=== PATIENT | female | born 1965 | race Caucasian/White ===

== ENCOUNTER → 2016-11-28 | Outpatient (CLI) | payer BC ==
[~2016-11-28] MED LIST: ALBU1AER9 INH; CETI10TA84 PO; CHOL200010 PO; CLR10 PO; KRIL1000 PO; LUTE1CAP9 PO; MISCCAP80 PO; MULT-506 PO; [UNRECOGNIZED DRUG - OTHER] PO
== END | disposition home or self-care (01) ==
LOC: C.LABSPEC 17:33
PROVIDERS: ATTEND Physician Assistant
DX: R10.2 Pelvic and perineal pain (principal)

== ENCOUNTER → 2016-12-13 | Outpatient (CLI) | payer BC | END | disposition home or self-care (01) | LOC: C.PAPS 16:34 | PROVIDERS: ATTEND Physician Assistant | DX: Z01.419 Encounter for gynecological examination (general) (routine) without abnormal findings (principal) ==

== ENCOUNTER → 2017-05-25 | Outpatient (CLI) | payer OTHER ==
--- NOTE | 2017-05-25 17:21 | DIAGNOSTIC IMAGING REPORT ---
R HAND MIN 3 VIEWS ROUTINE CLINICAL HISTORY: Right wrist pain following fall. COMPARISON: None. FINDINGS: Alignment of the right hand is anatomic. No fracture is identified. Carpal bones are intact. 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 IMPRESSION: No acute fracture or dislocation within the right hand. Electronically signed by: Nick Becerril M.D. 05/25/2017 5:20 PM Dictated Date/Time: 05/25/2017 5:17 PM
--- NOTE | 2017-05-25 17:23 | DIAGNOSTIC IMAGING REPORT ---
RIGHT WRIST 3 VIEWS HISTORY: Right wrist pain. COMPARISON: None. FINDINGS: There is no fracture or dislocation. Mild soft tissue swelling adjacent to the distal ulna. No radiopaque foreign bodies. IMPRESSION: No fractures. Electronically signed by: Evens Sánchez M.D. 05/25/2017 5:21 PM Dictated Date/Time: 05/25/2017 5:19 PM
== END | disposition home or self-care (01) ==
LOC: C.RAD1850 16:59
PROVIDERS: ATTEND Family Medicine
DX: M25.531 Pain in right wrist (principal)

== ENCOUNTER → 2017-11-10 | Outpatient (CLI) | payer OTHER ==
--- NOTE | 2017-11-10 15:27 | MAMMOGRAPHY REPORT ---
BILATERAL DIGITAL SCREENING MAMMOGRAM TOMOSYNTHESIS WITH CAD: 11/10/2017 CLINICAL HISTORY: Routine screening. Patient has no complaints. TECHNIQUE: The study was acquired using full field digital technology and interpreted from soft copy. Breast tomosynthesis in addition to standard 2D mammography was performed. Current study was also ev aluated with a Computer Aided Detection (CAD) system. COMPARISON: Comparison is made to exams dated: 02/10/2016 mammogram, 03/23/2012 mammogram, 03/07/2011 mammogram, 04/04/2013 mammogram, 03/05/2010 mammogram, and 04/07/2014 mammogram - [facility]ter. BREAST COMPOSITION: There are scattered areas of fibroglandular density in both breasts. FINDINGS: There is a focal asymmetry within the right 12:00 breast, best seen on the CC tomosynthesis images, f or which spot compression tomosynthesis views and possible breast ultrasound are recommended for furt her evaluation. The remainder of both breasts are stable compared to prior exams, without suspicious masses, calcific ations, or areas of architectural distortion noted. IMPRESSION: ACR BI-RADS CATEGORY 0: INCOMPLETE EVALUATION: NEED ADDITIONAL IMAGING EVALUATION Right breast focal asymmetry, for which additional imaging evaluation is recommended. The patient wi ll be called to schedule an appointment. Some breast cancers are not detected with mammography. A negative mammographic report should not mable y biopsy if a clinically suggestive mass is present. Marija Garcia M.D. ah/:11/10/2017 07:42:58 Business Development Specialist: RT Jennifer(Karen)(M), [facility] letter sent: Addl Imaging 0 BI-RADS Code: ACR BI-RADS Category 0: Incomplete Evaluation: Need Additional Imaging Evaluation
== END | disposition home or self-care (01) ==
LOC: C.MAMM 07:21
PROVIDERS: ATTEND Obstetrics & Gynecology
DX: Z12.31 Encounter for screening mammogram for malignant neoplasm of breast (principal); N64.89 Other specified disorders of breast

== ENCOUNTER → 2017-11-21 | Outpatient (CLI) | payer OTHER ==
--- NOTE | 2017-11-21 15:13 | MAMMOGRAPHY REPORT ---
UNILATERAL RIGHT DIGITAL DIAGNOSTIC MAMMOGRAM TOMOSYNTHESIS AND RIGHT ULTRASOUND: 11/21/2017 CLINICAL HISTORY: 52-year-old woman called back from screening mammography for a focal asymmetry in t he 12:00 right breast. Family history of breast cancer = aunt in her 40s. TECHNIQUE: Spot compression right CC and MLO tomosynthesis images were obtained. COMPARISON: Comparison is made to exams dated: 11/10/2017 mammogram, 02/10/2016 mammogram, 04/07/2014 ma mmogram, 04/04/2013 mammogram, 03/23/2012 mammogram, and 03/07/2011 mammogram - [facility]. BREAST COMPOSITION: The tissue of right breast is heterogeneously dense, which may obscure small mass es. FINDINGS: The spot compression right CC tomosynthesis view demonstrates partial effacement of the asy mmetry in the middle one third of the breast along the posterior nipple line on the 11/10/2017 screeni ng exam. A persistent 9.2 mm nodular asymmetry is identified on CC spot compression tomosynthesis sl ice 37/78, without evidence of spiculation or calcification. No other definite masses, areas of dist ortion or calcifications are seen in the right breast. A corresponding abnormality is not definitive ly seen on the spot compression MLO tomosynthesis images. Targeted ultrasound was performed in the right breast 12:00, retroareolar, 6:00 and slightly medial a nd slightly lateral to the nipple within the right breast. A few scattered cysts are identified in t he 12:00 axis, notably in the 12:00 right breast, 3 cm from the nipple, measuring 3.4 x 2.1 x 4.2 mm. Another possible lobulated hypoechoic to anechoic cystic-appearing mass in the 12:00 right breast, 1 cm from the nipple, 2.5 cm deep to the dermis measures approximately 7.0 x 6.2 x 3.6 mm. This may p ossibly correlate with the persistent mammographic nodular asymmetry, although size measurements diff er slightly from 7 versus 9 mm. Definitive characterization with ultrasound guided cyst aspiration v ersus core needle biopsy is recommended, with assessment of postprocedure imaging to assess for mammo gramultrasound correlation. No other suspicious solid or cystic mass is seen throughout the remainder of the visualized right nela ast on targeted ultrasound. IMPRESSION: ACR BI-RADS CATEGORY 4: SUSPICIOUS, ULTRASOUND ACR BI-RADS CATEGORY 4: SUSPICIOUS 1. Right breast ultrasound-guided cyst aspiration versus core biopsy is recommended for a probable 7 mm cyst in the 12:00 right breast, 1 cm from the nipple which may correlate with a persistent mammog raphic asymmetry seen in the CC projection along the posterior nipple line. 2. Correlation with postprocedure tomosynthesis mammograms is recommended. 3. These results and recommendations were discussed with the patient and her at the time of the exam. She tentatively scheduled the right breast procedure prior to leaving the department. Some breast cancers are not detected with mammography. A negative mammographic report should not mable y biopsy if a clinically suggestive mass is present. Krista Elizabeth M.D. ay/:11/21/2017 14:34:18 Sample Checker: RT Golden(Karen)(M), [facility] letter sent: Abnormal 4/5 OVERALL STUDY BIRADS: 4 Suspicious abnormality
== END | disposition home or self-care (01) ==
LOC: C.MAMM 09:38
PROVIDERS: ATTEND Obstetrics & Gynecology
DX: R92.8 Other abnormal and inconclusive findings on diagnostic imaging of breast (principal); Z85.3 Personal history of malignant neoplasm of breast; N63.10 Unspecified lump in the right breast, unspecified quadrant

== ENCOUNTER → 2017-11-23 | Outpatient (CLI) | payer OTHER ==
--- NOTE | 2017-11-23 15:08 | MAMMOGRAPHY REPORT ---
ASPIRATION RIGHT BREAST: 11/23/2017 CLINICAL HISTORY: Right 12:00 breast mass seen on recent ultrasound, which was felt to possibly corre late with the mammographic asymmetry. Therefore, aspiration versus biopsy was recommended. PATIENT CONSENT: The procedure and risks of ultrasound-guided cyst aspiration versus biopsy were disc ussed in full with the patient. Both oral and written consents were obtained. PROCEDURE DESCRIPTION: With ultrasound guidance, aseptic technique, and 1% lidocaine as a local anest hetic (1% lidocaine to anesthetize the skin and 1% lidocaine with epinephrine to anesthetize the deep er tissues), an attempt was made to aspirate the mass using an 18-gauge needle attached to a syringe. However, the mass did not aspirate. Therefore, the decision was made to proceed to core needle bio psy. A small skin kamille was made. After additional lidocaine was injected into the breast parenchyma , the previously seen mass was not confidently visualized to be targeted for biopsy, therefore, the d ecision was made to not proceed with a biopsy. Direct pressure was applied to the site and hemostasis was achieved. The patient tolerated the proce dure without complication. The small incision was covered with Steri-Strips and wound care instructi ons were reviewed with the patient. Given that the mass could not be biopsied and given that it was unclear if this completely accounted for the mammographic asymmetry, recommend contrast enhanced bilateral breast MRI to evaluate both the sonographic mass as well as the mammographic asymmetry. COMPARISON: Comparison is made to exams dated: 11/21/2017 ultrasound, 11/10/2017 mammogram, 02/10/2016 mammogram, 04/07/2014 mammogram, and 04/04/2013 mammogram - [facility]. IMPRESSION: ASPIRATION The hypoechoic mass in the right 12:00 breast did not aspirate, and the mass could not confidently be visualized to target for biopsy. As there is a question if the mass completely accounts for the sedrick mographic asymmetry and given the family history of breast cancer, would recommend contrast enhanced bilateral breast MRI to evaluate both the sonographic finding and the mammographic asymmetry. The patient was verbally notified of the results. The breast MRI was scheduled before the patient le ft the department. Marija Garcia M.D. ah/:11/23/2017 12:01:31 Ophthalmic Tech: Trinh Cintron, [facility]
== END | disposition home or self-care (01) ==
LOC: C.MAMM 08:17
PROVIDERS: ATTEND Obstetrics & Gynecology
DX: N63.10 Unspecified lump in the right breast, unspecified quadrant (principal)